=== PATIENT | female | born 2000 | race African-American/Black ===

== ENCOUNTER 2024-12-02 12:57 | Emergency (ER) | payer MEDICAID ==
[~2024-12-02] VITALS: Ht 152.4 cm; Wt 55.0 kg
[2024-12-02 12:58] VITALS: O2SAT 99
[2024-12-02 13:17] VITALS: BP 127/79; PULSE 73; RESP 14; TEMP 36.7; O2SAT 100
[2024-12-02] MEDS ORDERED: METH-653 MT (15:36)
[2024-12-02] MEDS: IBUPROFEN 600MG TABLET PO ONE (15:51)
== END 2024-12-02 15:52 | disposition home or self-care (01) ==
LOC: ER 12:57
DX: M54.2 Cervicalgia (principal)
CPT/HCPCS: 99283

== ENCOUNTER 2025-02-20 13:34 | Emergency (ER) | payer MEDICAID ==
[~2025-02-20] VITALS: Ht 152.4 cm; Wt 56.0 kg
[~2025-02-20 13:34] MED LIST: METH-653 MT
[2025-02-20 13:41] VITALS: O2SAT 100
[2025-02-20] MEDS: SODIUM CHLORIDE 0.9% 1,000 ML IV ONE (14:28)
[2025-02-20 14:42] LABS: HEMATOCRIT. 36.8 % (36.0-48.0); HEMOGLOBIN. 12.2 g/dL (12.0-16.0); MEAN PLATELET VOLUME 7.8 fl (7.4-10.4); PLATELET 283 x1000/uL (130-400); RED BLOOD CELL COUNT 4.36 mill/uL (4.2-5.4); RED CELL DISTRIBUTION WIDTH 16.0 % (11.6-14.6)
[2025-02-20 14:56] LABS: INR 1.1
[2025-02-20 15:00] LABS: CREATININE 0.8 mg/dL (0.6-1.0); TROPONIN I HIGH SENSITIVITY < 4 ng/L (3.0-34); UREA NITROGEN BLOOD 13 mg/dL (9-23)
[2025-02-20 15:12] LABS: BAND% 15.0 % (1.0-6.0); LYMPHOCYTES % MANUAL 21.0 % (20.0-60.0); MONOCYTES % MANUAL 10.0 % (2.0-8.0); NEUTROPHILS % MANUAL 54.0 % (45.0-75.0); PLATELET ESTIMATE NORMAL
[2025-02-20 15:15] LABS: HCG SCREEN NEGATIVE
[2025-02-20 18:00] VITALS: TEMP 37.9; O2SAT 100
[2025-02-20 18:28] VITALS: BP 99/66; PULSE 106; RESP 14
[2025-02-20] MEDS ORDERED: IOHEXOL-350 100 ML BOTTLE ONE (21:28)
== END 2025-02-20 18:29 | disposition home or self-care (01) ==
LOC: ER 13:34
DX: B34.9 Viral infection, unspecified (principal); J45.901 Unspecified asthma with (acute) exacerbation; Z98.890 Other specified postprocedural states
CPT/HCPCS: 99285; 96360; 71275; 96361; 71045; 80048; 84703; 85025; 85379; 85610; 86850; 86900; 86901; 84484; 36415; Q9967; J7030